=== PATIENT | female | born 1985 | race Two or more races ===

== ENCOUNTER → 2016-11-16 | Outpatient (CLI) | payer OTHER, MEDICAID ==
[~2016-11-16] MED LIST: PRENATAL VITAMINS
== END | disposition home or self-care (01) ==
LOC: CFH 08:02
PROVIDERS: ATTEND Nurse Practitioner Obstetrics & Gynecology
DX: N64.53 Retraction of nipple (principal)

== ENCOUNTER 2017-01-07 22:10 | Inpatient (IN) | payer OTHER, MEDICAID ==
[~2017-01-07] VITALS: Ht 162.6 cm; Wt 105.0 kg
[2017-01-07] MEDS ORDERED: OXYTOCIN 30U/ 0.9% NaCL 500ML 500 ML IV PRN (22:13)
[2017-01-07] MEDS ORDERED: OXYTOCIN 30U/ 0.9% NaCL 500ML 500 ML IV ONE (22:13)
[2017-01-07] MEDS ORDERED: D5%-LACTATED RINGERS 1,000 ML IV SCH (22:13)
[2017-01-07] MEDS ORDERED: FENTANYL PF 100 MCG/2ML ONE (22:18)
[2017-01-07] MEDS ORDERED: LIDOCAINE 1%, 20ML ONE (22:18)
[2017-01-07] MEDS ORDERED: MISOPROSTOL 200 MCG TABLET ONE (22:18)
[2017-01-07] MEDS ORDERED: NEWBORN KIT ONE (22:18)
[2017-01-07] MEDS ORDERED: OXYTOCIN 30U/ 0.9% NaCL 500ML 500 ML ONE ×2 (22:18→22:58)
[2017-01-07] MEDS: LACTATED RINGERS 1,000 ML IV SCH ×2 (22:22→22:38)
[2017-01-07] MEDS ORDERED: ONDANSETRON 2MG/ML, 2ML IVPush PRN (22:30)
[2017-01-07] MEDS ORDERED: FENTANYL PF 100 MCG/2ML IVPush PRN (22:30)
[2017-01-07] MEDS ORDERED: TERBUTALINE 1 MG/ML, 1ML IVPush PRN ×2 (22:30)
[2017-01-07] MEDS ORDERED: SODIUM CITRATE/CITRIC ACID 30 ML UDC PO PRN (22:30)
[2017-01-07] MEDS ORDERED: FENTANYL PF 100 MCG/2ML IV PRN (22:30)
[2017-01-07] MEDS ORDERED: SODIUM CHLORIDE FLUSH 10ML SYR IVF PRN (22:30)
[2017-01-07] MEDS ORDERED: ALUMINUM/MAG/SIMETHICONE 30 ML UDC PO PRN (22:30)
[2017-01-07] MEDS ORDERED: IBUPROFEN 600 MG TABLET ONE (22:58)
[2017-01-07] MEDS ORDERED: OXYcodone/APAP 5/325MG TABLET ONE (22:58)
[2017-01-07] MEDS: IBUPROFEN 600 MG TABLET PO PRN (23:10)
[2017-01-07] MEDS ORDERED: OXYcodone/APAP 5/325MG TABLET PO PRN ×2 (23:30)
[2017-01-07] MEDS ORDERED: MISOPROSTOL 200 MCG TABLET PR PRN (23:30)
[2017-01-07] MEDS ORDERED: BISACODYL 10 MG SUPP PR PRN (23:30)
[2017-01-07] MEDS ORDERED: ACETAMINOPHEN 325 MG TABLET PO PRN (23:30)
[2017-01-07] MEDS ORDERED: ONDANSETRON 2MG/ML, 2ML IV PRN (23:30)
[2017-01-07] MEDS: OXYTOCIN 30U/ 0.9% NaCL 500ML 500 ML IV SCH (23:41)
[2017-01-08 00:20] VITALS: BP 108/64
[2017-01-08 05:00] VITALS: BP 103/64
[2017-01-08] MEDS: IBUPROFEN 600 MG TABLET PO PRN ×3 (07:08→22:53)
[2017-01-08 07:35] VITALS: BP 116/74
[2017-01-08] MEDS: OXYTOCIN 30U/ 0.9% NaCL 500ML 500 ML IV SCH ×2 (09:07→19:07)
[2017-01-08] MEDS: PRENATAL VIT/IRON/FA 1 EACH TABLET PO SCH (10:32)
[2017-01-08] MEDS: DOCUSATE 100 MG CAPSULE PO PRN ×2 (10:32→22:53)
[2017-01-08 12:00] VITALS: BP 111/69
[2017-01-08 16:00] VITALS: BP 107/71
[2017-01-08 19:45] VITALS: BP 109/74
[2017-01-09] MEDS ORDERED: IBUP-1222 PO (00:15)
[2017-01-09] MEDS: OXYTOCIN 30U/ 0.9% NaCL 500ML 500 ML IV SCH (05:07)
[2017-01-09] MEDS: IBUPROFEN 600 MG TABLET PO PRN (06:18)
[2017-01-09 07:40] VITALS: BP 119/71
[2017-01-09] MEDS: PRENATAL VIT/IRON/FA 1 EACH TABLET PO SCH (09:12)
== END 2017-01-09 12:18 | disposition home or self-care (01) | DRG 775 ==
LOC: LDOP 22:10 → LDIP 22:11 → 2NW 01-08 00:12
PROVIDERS: ADMIT Obstetrics & Gynecology; ATTEND Obstetrics & Gynecology
PROC: 10E0XZZ Delivery of Products of Conception, External Approach (ICD-10-PCS; principal; 2017-01-08)
DX: O69.81X0 Labor and delivery complicated by cord around neck, without compression, not applicable or unspecified (principal); Z37.0 Single live birth; Z3A.39 39 weeks gestation of pregnancy; Z86.32 Personal history of gestational diabetes; N64.59 Other signs and symptoms in breast
CPT/HCPCS: 36415; 85025; 86850; 86900; J3010; J2590; J7120

== ENCOUNTER 2017-01-12 14:33 | Emergency (ER) | payer OTHER, MEDICAID ==
[~2017-01-12] VITALS: Ht 162.6 cm; Wt 98.7 kg
[~2017-01-12 14:33] MED LIST changes: +IBUP-1222 PO
[2017-01-12] MEDS ORDERED: SODIUM CHLORIDE 0.9% 1,000 ML IV ONE (15:31)
[2017-01-12] MEDS ORDERED: ONDANSETRON 2MG/ML, 2ML ONE (15:56)
[2017-01-12] MEDS ORDERED: SODIUM CHLORIDE 0.9% 1,000ML IVBOLUS ONE (16:00)
[2017-01-12] MEDS ORDERED: ONDANSETRON 2MG/ML, 2ML IVPush ONE (16:00)
[2017-01-12] MEDS ORDERED: SODIUM CHLORIDE FLUSH 10ML SYR IVF ONE (16:00)
[2017-01-12 16:04] LABS: ASPARTATE AMINO TRANSFERASE 26 U/L (15-37); BLOOD UREA NITROGEN 15 mg/dL (7-18)
[2017-01-12 16:14] VITALS: BP 128/86
== END 2017-01-12 17:43 | disposition home or self-care (01) ==
LOC: ED 16:57
DX: K25.0 Acute gastric ulcer with hemorrhage (principal); B96.81 Helicobacter pylori [H. pylori] as the cause of diseases classified elsewhere
CPT/HCPCS: 36415; 80053; 83690; 85025; 85610; 85730; 86677; 86850; 86900; 96361; 96374; 99284; J2405; J7030